=== PATIENT | female | born 1975 | race Caucasian/White ===

== ENCOUNTER → 2019-03-05 | Outpatient (CLI) | payer OTHER | END | disposition home or self-care (01) | LOC: CFH 13:17 | PROVIDERS: ATTEND Nurse Practitioner | DX: N60.02 Solitary cyst of left breast (principal); N60.01 Solitary cyst of right breast | CPT/HCPCS: 76642; 77066; G0279 ==

== ENCOUNTER 2020-03-12 07:21 | Outpatient (CLI) | payer OTHER | END 2020-03-12 23:59 | disposition home or self-care (01) | LOC: CFH 07:21 | PROVIDERS: ATTEND Specialist | DX: Z12.31 Encounter for screening mammogram for malignant neoplasm of breast (principal) | CPT/HCPCS: 77063; 77067 ==